=== PATIENT | female | born 1960 ===

== ENCOUNTER 2016-10-31 15:02 | Outpatient (CLI) | payer MEDICARE, OTHER | END 2016-10-31 15:03 | disposition home or self-care (01) | LOC: LABHHL 15:02 | PROVIDERS: ATTEND Internal Medicine Gastroenterology | DX: R13.10 Dysphagia, unspecified (principal); B96.81 Helicobacter pylori [H. pylori] as the cause of diseases classified elsewhere | CPT/HCPCS: 88305; 88342 ==